=== PATIENT | female | born 1995 | race African-American/Black ===

== ENCOUNTER 2019-11-12 20:24 | Emergency (ER) | payer MEDICAID ==
[~2019-11-12] VITALS: Ht 160 cm; Wt 45.4 kg
--- NOTE | 2019-11-12 21:31 | PHYS DOC ---
Adult General Chief Complaint Chief Complaint: FLU SYMPTOM HPI HPI Patient is a 24 year old female who presents with headache, dizziness, stomach ache, nausea, fever this been ongoing for 3-4 days. Patient rates her pain as 5 out of 10 in severity and sharp. Patient has type 1 diabetes. Patient does not check her blood sugar recently. Review of Systems Review of Systems Constitutional: Reports fever or chills [] Eyes: Denies change in visual acuity, redness, or eye pain [] HENT: Denies nasal congestion or sore throat [] Respiratory: Denies cough or shortness of breath [] Cardiovascular: No additional information not addressed in HPI [] GI: Reports abdominal pain, nausea, Denies vomiting, bloody stools or diarrhea [] : Denies dysuria or hematuria [] Musculoskeletal: Denies back pain or joint pain Integument: Denies rash or skin lesions Neurologic: Reports dizziness, headache, denies focal weakness or sensory changes [] Endocrine: Denies polyuria or polydipsia [] Complete systems were reviewed and found to be within normal limits, except as documented in this note. Current Medications Current Medications Current Medications Medications (Trade) Dose Ordered Sig/Stephanie Start Time Stop Time Status Last Admin Dose Admin Fentanyl Citrate (Fentanyl 2ml Vial) 50 mcg 1X ONCE 11/12/19 22:30 11/12/19 22:31 DC Info (CONTRAST GIVEN -- Rx MONITORING) 1 each PRN DAILY PRN 11/12/19 21:45 11/14/19 21:44 Iohexol (Omnipaque 300 Mg/ml) 75 ml 1X ONCE 11/12/19 22:00 11/12/19 22:01 DC 11/12/19 22:29 75 ML Ondansetron HCl (Zofran) 4 mg 1X ONCE 11/12/19 22:00 11/12/19 22:01 DC 11/12/19 21:47 4 MG Sodium Chloride 1,000 ml @ 1,000 mls/hr 1X ONCE 11/12/19 22:00 11/12/19 22:59 DC 11/12/19 21:47 1,000 MLS/HR Allergies Allergies Allergies Coded Allergies Type Severity Reaction Last Updated Verified hydrocodone Allergy Intermediate 11/12/19 Yes prochlorperazine Allergy Intermediate 11/12/19 Yes Physical Exam Physical Exam Constitutional: Well developed, well nourished, no acute distress, non-toxic appearance. [] HENT: Normocephalic, atraumatic, bilateral external ears normal, oropharynx moist, no oral exudates, nose normal. [] Eyes: PERRLA, EOMI, conjunctiva normal, no discharge. [] Neck: Normal range of motion, no tenderness, supple, no stridor. [] Cardiovascular:Heart rate regular rhythm, no murmur [] Lungs & Thorax: Bilateral breath sounds clear to auscultation [] Abdomen: Bowel sounds normal, soft, no tenderness, no masses, no pulsatile masses. [] Skin: Warm, dry, no erythema, no rash. [] Back: No tenderness, no CVA tenderness. [] Extremities: No tenderness, no cyanosis, no clubbing, ROM intact, no edema. [] Neurologic: Alert and oriented X 3, normal motor function, normal sensory function, no focal deficits noted. [] Psychologic: Affect normal, judgement normal, mood normal. [] Current Patient Data Vital Signs Vital Signs Date Time Temp Pulse Resp B/P (MAP) Pulse Ox O2 Delivery O2 Flow Rate FiO2 11/12/19 20:35 98.2 93 20 138/93 (108) 98 Room Air 98.2 Lab Values Laboratory Tests Test 11/12/19 20:41 11/12/19 20:45 11/12/19 20:51 11/12/19 21:44 Glucose (Fingerstick) 333 mg/dL (70-99) H White Blood Count 6.2 x10^3/uL (4.0-11.0) Red Blood Count 3.99 x10^6/uL (3.50-5.40) Hemoglobin 10.3 g/dL (12.0-15.5) L Hematocrit 32.3 % (36.0-47.0) L Mean Corpuscular Volume 81 fL (79-100) Mean Corpuscular Hemoglobin 26 pg (25-35) Mean Corpuscular Hemoglobin Concent 32 g/dL (31-37) Red Cell Distribution Width 15.0 % (11.5-14.5) H Platelet Count 347 x10^3/uL (140-400) Neutrophils (%) (Auto) 57 % (31-73) Lymphocytes (%) (Auto) 35 % (24-48) Monocytes (%) (Auto) 6 % (0-9) Eosinophils (%) (Auto) 1 % (0-3) Basophils (%) (Auto) 1 % (0-3) Neutrophils # (Auto) 3.5 x10^3/uL (1.8-7.7) Lymphocytes # (Auto) 2.2 x10^3/uL (1.0-4.8) Monocytes # (Auto) 0.4 x10^3/uL (0.0-1.1) Eosinophils # (Auto) 0.1 x10^3/uL (0.0-0.7) Basophils # (Auto) 0.0 x10^3/uL (0.0-0.2) Urine Collection Type Unknown Urine Color Yellow Urine Clarity Cloudy Urine pH 6.5 Urine Specific [place] 1.020 Urine Protein >=300 mg/dL (NEG-TRACE) Urine Glucose (UA) >=1000 mg/dL (NEG) Urine Ketones (Stick) Negative mg/dL (NEG) Urine Blood Moderate (NEG) Urine Nitrite Negative (NEG) Urine Bilirubin Negative (NEG) Urine Urobilinogen Dipstick 0.2 mg/dL (0.2 mg/dL) Urine Leukocyte Esterase Large (NEG) Urine RBC 6-10 /HPF (0-2) Urine WBC Tntc /HPF (0-4) Urine Squamous Epithelial Cells Few /LPF Urine Bacteria Moderate /HPF (0-FEW) Urine Mucus Slight /LPF Sodium Level 134 mmol/L (136-145) L Potassium Level 4.2 mmol/L (3.5-5.1) Chloride Level 98 mmol/L (98-107) Carbon Dioxide Level 28 mmol/L (21-32) Anion Gap 8 (6-14) Blood Urea Nitrogen 15 mg/dL (7-20) Creatinine 1.0 mg/dL (0.6-1.0) Estimated GFR (Cockcroft-Gault) 81.7 BUN/Creatinine Ratio 15 (6-20) Glucose Level 343 mg/dL (70-99) H Calcium Level 9.2 mg/dL (8.5-10.1) Magnesium Level 1.9 mg/dL (1.8-2.4) Total Bilirubin 0.2 mg/dL (0.2-1.0) Aspartate Amino Transferase (AST) 14 U/L (15-37) L Alanine Aminotransferase (ALT) 6 U/L (14-59) L Alkaline Phosphatase 68 U/L (46-116) Total Protein 7.8 g/dL (6.4-8.2) Albumin 2.6 g/dL (3.4-5.0) L Albumin/Globulin Ratio 0.5 (1.0-1.7) L Lipase 36 U/L (73-393) L Urine Opiates Screen Neg (NEG) Urine Methadone Screen Neg (NEG) Urine Barbiturates Neg (NEG) Urine Phencyclidine Screen Neg (NEG) Urine Amphetamine/Methamphetamine Neg (NEG) Urine Benzodiazepines Screen Neg (NEG) Urine Cocaine Screen Neg (NEG) Urine Cannabinoids Screen Pos (NEG) Ethyl Alcohol Level < 10 mg/dL (0-10) Urine Ethyl Alcohol Neg (NEG) Acetone Level Neg (NEG) POC Urine HCG, Qualitative Hcg negative (Negative) Influenza Type A Antigen Negative (NEGATIVE) Influenza Type B Antigen Negative (NEGATIVE) Laboratory Tests 11/12/19 20:45 Laboratory Tests 11/12/19 20:45 EKG EKG [] Radiology/Procedures Radiology/Procedures [][facility] [address] [place] [address] IMAGING REPORT Signed PATIENT: PRASAD JACOBSON MACCOUNT: [id number] : 1995 LOCATION: ER AGE: 24 SEX: F EXAM STATUS: REG ER ORD. PHYSICIAN: EZRA CHAPA APRN REASON: RLQ abdominal pain, nausea PROCEDURE: CT ABD PELV W/ IV CONTRST ONLY Exam: CT abdomen and pelvis with contrast INDICATION: Right lower quadrant pain TECHNIQUE: Sequential axial images through the abdomen and pelvis obtained following the administration of 75 mL of Omni 300 IV contrast. Sagittal and coronal reformatted images were reconstructed from the axial data and reviewed. Comparisons: None FINDINGS: Heart size is normal. No pericardial effusion. Visualized lung bases are clear. No pleural effusion. Liver, spleen, pancreas, gallbladder and adrenals are unremarkable. Kidneys demonstrate symmetric enhancement. No perinephric inflammation or hydronephrosis. No renal or ureteral calculi are identified. There is a right-sided ureteral wall enhancement. Bladder is distended with diffuse wall thickening. Uterus is not enlarged. No abnormal adnexal mass. There is trace free fluid in the pelvis. Large and small bowel are unremarkable. Appendix is normal. No free intra-abdominal air or fluid. No obstruction. Abdominal aorta has a normal course and caliber. Abdominal vasculature is patent. Enlarged intra-abdominal lymph nodes are identified. No suspicious osseous lesions or acute fractures. IMPRESSION: 1. Right-sided ureteral enhancement. There is also diffuse bladder wall thickening. Correlate with urinalysis for cystitis/ureteritis 2. Normal appendix. Exposure: One or more of the following in the visualized dose reduction techniques were utilized for this examination: 1. Automated exposure control 2. Adjustment of the MA and/or KV according to patient size 3. Use of iterative of reconstructive technique Electronically signed by: Talia Jones MD (11/12/2019 11:28 PM) [facility] DICTATED and SIGNED BY: TALIA JONES MD DATE: 11/12/19 1088 Course & Med Decision Making Course & Med Decision Making Pertinent Labs and Imaging studies reviewed. (See chart for details) Will get labs, CT, chest x-ray, and influenza. Will give supportive care. Labs show hyperglycemia of 333. Labs were otherwise unremarkable. Urine shows leukocytes and blood. Will place on Keflex. Chest x-ray shows right lower lobe infiltrate. Will place on Doxycycline. Will also prescribe Zofran. Dragon Disclaimer Dragon Disclaimer This electronic medical record was generated, in whole or in part, using a voice recognition dictation system. Departure Departure Impression: Primary Impression: Hyperglycemia Additional Impressions: Urinary tract infection Pneumonia Disposition: 01 HOME, SELF-CARE Condition: STABLE Referrals: SHAKIRA ANGEL DO (PCP) Patient Instructions: Hyperglycemia, Pneumonia, Adult, Urinary Tract Infection Additional Instructions: Thank you for visiting [facility]. We appreciate you trusting us with your care. If any additional problems come up don't hesitate to return to visit us. Please follow up with your primary care provider so they can plan additional care if needed and know about the problem that you had. If symptoms worsen come back to the Emergency Department. Any concerning symptoms that start such as chest pain, shortness of air, weakness or numbness on one side of the body, running high fevers or any other concerning symptoms return to the ER. Please be aware that diabetes can cause your sugars to fluctuate while you are sick. This can cause additional issues. Please check your sugars often to ensure they are staying in a safe range and if you are on insulin please take as instructed by your primary care doctor. If you have any questions about this please let us know or contact your primary care provider for additional instruction about taking your insulin while you are sick. If you get concerned regarding your sugar while at home please do not hesitate to come back to the ER. You have been prescribed an antibiotic today to help fight your infection. Please take all of the antibiotic as directed. If after 48 hours the infection is not improving, please return for more care. If the infection worsens, return to ER for additional care. Scripts Doxycycline Hyclate (DOXYCYCLINE HYCLATE) 100 Mg Capsule 1 CAP PO BID for 10 Days, #20 CAP Prov: EZRA CHAPA APRN 11/12/19 Ondansetron (ONDANSETRON ODT) 4 Mg Tab.rapdis 1 TAB PO PRN Q6-8HRS PRN for NAUSEA, #16 TAB Prov: EZRA CHAPA APRN 11/12/19 Cephalexin (KEFLEX) 500 Mg Capsule 1 CAP PO BID for 7 Days, #14 CAP 0 Refills Prov: EZRA CHAPA APRN 11/12/19 Problem Qualifiers Additional Impressions: Urinary tract infection Urinary tract infection type: acute cystitis Hematuria presence: with hematuria Qualified Codes: N30.01 - Acute cystitis with hematuria Pneumonia Pneumonia type: due to unspecified organism Laterality: right Lung location: lower lobe of lung Qualified Codes: J18.9 - Pneumonia, unspecified organism EZRA CHAPA APRN Nov 12, 2019 21:31
[2019-11-12 21:34] LABS: BASO % 1 % (0-3); EOS # 0.1 x10^3/uL (0.0-0.7); EOS % 1 % (0-3); HEMATOCRIT 32.3 % (36.0-47.0); HEMOGLOBIN 10.3 g/dL (12.0-15.5); LYMPH # 2.2 x10^3/uL (1.0-4.8); LYMPH % 35 % (24-48); MEAN CORPUSCULAR HEMOGLOBIN 26 pg (25-35); MEAN CORPUSCULAR HGB CONC 32 g/dL (31-37); MEAN CORPUSCULAR VOLUME 81 fL (79-100); MONO # 0.4 x10^3/uL (0.0-1.1); MONO % 6 % (0-9); NEUT # 3.5 x10^3/uL (1.8-7.7); NEUT % 57 % (31-73); PLATELET COUNT 347 x10^3/uL (140-400); RED BLOOD COUNT 3.99 x10^6/uL (3.50-5.40); WHITE BLOOD COUNT 6.2 x10^3/uL (4.0-11.0)
[2019-11-12 21:45] LABS: BILIRUBIN,URINE NEGATIVE (NEG); CLARITY,URINE CLOUDY; COLOR,URINE YELLOW; NITRITE,URINE NEGATIVE (NEG); PH,URINE 6.5; PROTEIN,URINE >=300 mg/dL (NEG-TRACE); UROBILINOGEN,URINE 0.2 mg/dL (0.2 mg/dL)
[2019-11-12] MEDS ORDERED: CONTRAST GIVEN. MC PRN (21:45)
[2019-11-12 21:48] LABS: SQUAMOUS EPITHELIAL CELL,UR FEW /LPF
[2019-11-12 21:49] LABS: BACTERIA,URINE MODERATE /HPF (0-FEW); WBC,URINE TNTC /HPF (0-4)
[2019-11-12 21:52] LABS: CALCIUM 9.2 mg/dL (8.5-10.1); GFR 81.7; POTASSIUM 4.2 mmol/L (3.5-5.1)
[2019-11-12 21:53] LABS: BARBITURATES NEG (NEG); BENZODIAZEPINES NEG (NEG); CANNABINOIDS POS (NEG); COCAINE NEG (NEG); METHADONE NEG (NEG); OPIATES NEG (NEG); PHENCYCLIDINE NEG (NEG)
[2019-11-12 21:57] LABS: ALBUMIN 2.6 g/dL (3.4-5.0); ALBUMIN/GLOBULIN RATIO 0.5 (1.0-1.7); AMPHETAMINE/METHAMPHETAMINE NEG (NEG); MAGNESIUM 1.9 mg/dL (1.8-2.4); TOTAL BILIRUBIN 0.2 mg/dL (0.2-1.0); TOTAL PROTEIN 7.8 g/dL (6.4-8.2)
[2019-11-12] MEDS ORDERED: ONDANSETRON PF 4 MG/2 ML VIAL. IV ONE (22:00)
[2019-11-12] MEDS ORDERED: IV NORMAL SALINE 1000ML BAG 1,000 ML IV ONE (22:00)
[2019-11-12] MEDS ORDERED: IOHEXOL 300 MG/ML 100ML VIAL. IV ONE (22:00)
[2019-11-12 22:14] LABS: INFLUENZA A PATIENT NEGATIVE (NEGATIVE); INFLUENZA B PATIENT NEGATIVE (NEGATIVE)
[2019-11-12 22:18] VITALS: BP 196/118
[2019-11-12] MEDS ORDERED: fentaNYL PF VIAL 100 MCG/2 ML VIAL IV ONE (22:30)
--- NOTE | 2019-11-12 23:31 | RAD ---
Exam: CT abdomen and pelvis with contrast INDICATION: Right lower quadrant pain TECHNIQUE: Sequential axial images through the abdomen and pelvis obtained following the administration of 75 mL of Omni 300 IV contrast. Sagittal and coronal reformatted images were reconstructed from the axial data and reviewed. Comparisons: None FINDINGS: Heart size is normal. No pericardial effusion. Visualized lung bases are clear. No pleural effusion. Liver, spleen, pancreas, gallbladder and adrenals are unremarkable. Kidneys demonstrate symmetric enhancement. No perinephric inflammation or hydronephrosis. No renal or ureteral calculi are identified. There is a right-sided ureteral wall enhancement. Bladder is distended with diffuse wall thickening. Uterus is not enlarged. No abnormal adnexal mass. There is trace free fluid in the pelvis. Large and small bowel are unremarkable. Appendix is normal. No free intra-abdominal air or fluid. No obstruction. Abdominal aorta has a normal course and caliber. Abdominal vasculature is patent. Enlarged intra-abdominal lymph nodes are identified. No suspicious osseous lesions or acute fractures. IMPRESSION: 1. Right-sided ureteral enhancement. There is also diffuse bladder wall thickening. Correlate with urinalysis for cystitis/ureteritis 2. Normal appendix. Exposure: One or more of the following in the visualized dose reduction techniques were utilized for this examination: 1. Automated exposure control 2. Adjustment of the MA and/or KV according to patient size 3. Use of iterative of reconstructive technique Electronically signed by: Talia Mcclain MD (11/12/2019 11:28 PM) [facility]
[2019-11-12] MEDS ORDERED: ONDA4TAB12 PO (23:33)
[2019-11-12] MEDS ORDERED: DOXY100C2 PO (23:33)
[2019-11-12] MEDS ORDERED: CEPH-264 PO (23:33)
--- NOTE | 2019-11-13 03:34 | RAD ---
Exam: Chest 2 views INDICATION: Shortness of breath TECHNIQUE: Frontal and lateral views the chest Comparisons: None FINDINGS: The cardiomediastinal silhouette and pulmonary vessels are within normal limits. The lung and pleural spaces are clear. IMPRESSION: No acute cardiopulmonary process. Electronically signed by: Talia Mcclain MD (11/13/2019 3:31 AM) [facility]
--- NOTE | 2019-11-13 08:24 | EKG ---
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
== END 2019-11-12 23:50 | disposition home or self-care (01) ==
LOC: ER 20:24
DX: E10.65 Type 1 diabetes mellitus with hyperglycemia (principal); N30.01 Acute cystitis with hematuria; J18.9 Pneumonia, unspecified organism; R42 Dizziness and giddiness; Z88.5 Allergy status to narcotic agent; Z88.8 Allergy status to other drugs, medicaments and biological substances
CPT/HCPCS: 36415; 71046; 74177; 80053; 80307; 81001; 81025; 82010; 82962; 83690; 83735; 85025; 87086; 87804; 93005; 96361; 96374; 99285; G0480; J2405; J7030; Q9967

== ENCOUNTER 2022-02-23 15:15 | Inpatient (IN) | payer MEDICAID ==
[~2022-02-23] VITALS: Ht 157.5 cm; Wt 54.0 kg
[~2022-02-23 15:15] MED LIST: CEPH-264 PO; DOXY100C3 PO; ONDA4TAB12 PO
[2022-02-23] MEDS ORDERED: ONDANSETRON PF 4 MG/2 ML VIAL. IVP ONE (15:45)
[2022-02-23] MEDS ORDERED: ONDANSETRON ODT 4 MG TAB.RAPDIS. PO ONE (15:45)
[2022-02-23 16:30] LABS: BASO # 0.1 x10^3/uL (0.0-0.2); BASO % 1 % (0-3); EOS # 0.1 x10^3/uL (0.0-0.7); EOS % 1 % (0-3); HEMATOCRIT 37.4 % (36.0-47.0); HEMOGLOBIN 11.6 g/dL (12.0-15.5); LYMPH # 1.1 x10^3/uL (1.0-4.8); LYMPH % 11 % (24-48); MEAN CORPUSCULAR HEMOGLOBIN 27 pg (25-35); MEAN CORPUSCULAR HGB CONC 31 g/dL (31-37); MEAN CORPUSCULAR VOLUME 88 fL (79-100); MONO # 0.3 x10^3/uL (0.0-1.1); MONO % 3 % (0-9); NEUT # 8.7 x10^3/uL (1.8-7.7); NEUT % 86 % (31-73); PLATELET COUNT 160 x10^3/uL (140-400); RED BLOOD COUNT 4.23 x10^6/uL (3.50-5.40); RED CELL DISTRIBUTION WIDTH 15.4 % (11.5-14.5); WHITE BLOOD COUNT 10.1 x10^3/uL (4.0-11.0)
[2022-02-23] MEDS ORDERED: METOCLOPRAMIDE HCL 10 MG/2 ML VIAL. IVP ONE (16:30)
--- NOTE | 2022-02-23 17:42 | PHYS DOC ---
Past Medical History Past Medical History: Diabetes-Type I, Hypertension, Kidney Infection, Renal Failure Additional Past Medical Histor: DIALYSIS MWF Past Surgical History: No Surgical History Smoking Status: Never Smoker Alcohol Use: None Drug Use: None General Adult EDM: Chief Complaint: NAUSEA/VOMITING/DIARRHEA HPI: HPI: Patient is a 26 year old female with past medical history including hypertension, diabetes type 1 with gastroparesis, and end-stage renal disease on dialysis who presents with nausea, diarrhea. On arrival, patient is gagging herself in order to induce vomiting. She does not answer many questions, but states she is doing this to make her "stomach feel better." Patient states she typically goes to [facility] for care. Patient denies fever, chills, hematemesis, bloody stool. She was dialyzed yesterday, but is unsure how much fluid was removed. Review of Systems: Review of Systems: Constitutional: See HPI Eyes: Denies change in visual acuity, visual field deficits or discharge HENT: Denies ear pain, nasal congestion or sore throat Respiratory: Denies cough or shortness of breath Cardiovascular: Denies chest pain, palpitations or edema GI: See HPI : Denies dysuria or hematuria Musculoskeletal: Denies back pain or joint pain Integument: Denies rash or other skin lesion Neurologic: Denies headache, focal weakness or sensory changes Heart Score: C/O Chest Pain: No Current Medications: Current Medications Medications (Trade) Dose Ordered Sig/Stephanie Start Time Stop Time Status Last Admin Dose Admin Metoclopramide HCl (Reglan Vial) 5 mg 1X ONCE 02/23/22 16:30 02/23/22 16:31 DC Ondansetron HCl (Zofran Odt) 4 mg 1X ONCE 02/23/22 15:45 02/23/22 16:26 DC Ondansetron HCl (Zofran) 4 mg 1X ONCE 02/23/22 15:45 02/23/22 15:46 DC 02/23/22 16:11 4 MG Allergies: Allergies: Allergies Coded Allergies Type Severity Reaction Last Updated Verified fentanyl Allergy Intermediate 02/23/22 Yes hydrocodone Allergy Intermediate 11/12/19 Yes prochlorperazine Allergy Intermediate 11/12/19 Yes Physical Exam: PE: Constitutional: Well developed, well nourished, patient is tearful, appears significantly older than stated age. HENT: Normocephalic, atraumatic, bilateral external ears normal, nose normal. Eyes: EOMI, conjunctiva normal, no discharge. Neck: Normal range of motion, no stridor. Cardiovascular: Heart regular rate and rhythm. No apparent rubs or gallops. Lungs & Thorax: Equal thoracic expansion, no increased work of breathing, bi lateral breath sounds clear to auscultation. Back: No tenderness, no CVA tenderness. Extremities: No cyanosis, no clubbing, ROM intact, no edema. Neurologic: Alert and oriented x4, motor and sensory function grossly intact, no focal deficits noted. Current Patient Data: Labs: Laboratory Tests Test 02/23/22 15:30 02/23/22 15:39 White Blood Count 10.1 x10^3/uL (4.0-11.0) Red Blood Count 4.23 x10^6/uL (3.50-5.40) Hemoglobin 11.6 g/dL (12.0-15.5) L Hematocrit 37.4 % (36.0-47.0) Mean Corpuscular Volume 88 fL (79-100) Mean Corpuscular Hemoglobin 27 pg (25-35) Mean Corpuscular Hemoglobin Concent 31 g/dL (31-37) Red Cell Distribution Width 15.4 % (11.5-14.5) H Platelet Count 160 x10^3/uL (140-400) Neutrophils (%) (Auto) 86 % (31-73) H Lymphocytes (%) (Auto) 11 % (24-48) L Monocytes (%) (Auto) 3 % (0-9) Eosinophils (%) (Auto) 1 % (0-3) Basophils (%) (Auto) 1 % (0-3) Neutrophils # (Auto) 8.7 x10^3/uL (1.8-7.7) H Lymphocytes # (Auto) 1.1 x10^3/uL (1.0-4.8) Monocytes # (Auto) 0.3 x10^3/uL (0.0-1.1) Eosinophils # (Auto) 0.1 x10^3/uL (0.0-0.7) Basophils # (Auto) 0.1 x10^3/uL (0.0-0.2) Glucose (Fingerstick) 245 mg/dL (70-99) H Laboratory Tests 02/23/22 15:30 Vital Signs: Vital Signs Date Time Temp Pulse Resp B/P (MAP) Pulse Ox O2 Delivery O2 Flow Rate FiO2 02/23/22 19:48 94 209/96 02/23/22 19:20 92 18 227/121 (156) 96 Room Air 02/23/22 17:57 91 20 228/109 (148) 91 Room Air 02/23/22 17:00 88 18 221/109 (146) 96 Room Air 02/23/22 15:15 97.4 87 18 244/112 (156) 99 Room Air 97.4 EKG: EKG: EKG Interpreted by Dr. Andrade at 1939: Regular rate and rhythm 93 bpm with no ectopic beats. QT 396 ms/QTc 495 ms. No STEMI. Course & Med Decision Making: Course & Med Decision Making Pertinent Labs and Imaging studies reviewed. (See chart for details) Patient is a 26-year-old female with past medical history that includes ESRD and diabetic gastroparesis who presents with nausea and vomiting. Patient is using her index finger to force herself to vomit and has to be redirected several times in order for her to stop. Labs will be obtained, patient will be treated with IV Zofran. Reevaluation, patient states that her nausea is not improved. Provided renal dosing of Reglan IV (5mg). Patient continues to be tearful and attempts to gag herself to vomit. Administered 2.5 IV Haldol. On subsequent reevaluation, patient is resting on exam bed. She reports that her nausea is still very severe. Patient wishes to be admitted at [facility]. Transfer center was contacted, however hospital is completely full and has no available beds. Discussed admission to [facility] with the patient and her brother at bedside. They are agreeable. Patient was gladly accepted by hospitalist, Dr. Amezquita. Consult will be added for nephrology, as patient is due to be dialyzed tomorrow. Casey Disclaimer: Casey Disclaimer: This electronic medical record was generated, in whole or in part, using a voice recognition dictation system. Departure Departure Impression: Primary Impression: Intractable nausea and vomiting Additional Impressions: History of end stage renal disease Hx of diabetic gastroparesis Disposition: ADMITTED INPATIENT Admitting Physician: SHILA Gilmore) Condition: GUARDED Referrals: SHAKIRA ANGEL DO (PCP) HANNAH LUNA Feb 23, 2022 17:42
[2022-02-23] MEDS ORDERED: HALOPERIDOL LACTATE 5 MG/ML VIAL. IVP ONE (18:15)
[2022-02-23] MEDS ORDERED: hydrALAZINE 20 MG/ML VIAL. IVP ONE (19:30)
[2022-02-23 20:03] LABS: CALCIUM 8.7 mg/dL (8.5-10.1); CREATININE 4.9 mg/dL (0.6-1.0); GFR 12.9; POTASSIUM 3.4 mmol/L (3.5-5.1)
[2022-02-23 20:09] LABS: ALBUMIN 4.1 g/dL (3.4-5.0); ALBUMIN/GLOBULIN RATIO 0.9 (1.0-1.7); MAGNESIUM 2.1 mg/dL (1.8-2.4); PHOSPHORUS 3.8 mg/dL (2.6-4.7); TOTAL BILIRUBIN 0.7 mg/dL (0.2-1.0); TOTAL PROTEIN 8.5 g/dL (6.4-8.2)
[2022-02-23] MEDS ORDERED: ONDANSETRON PF 4 MG/2 ML VIAL. IVP PRN (20:45)
[2022-02-23 23:05] VITALS: BP 157/81
--- NOTE | 2022-02-23 23:39 | NUR ---
The patient, PRASAD JACOBSON, 26 y/o, F admitted by VALENCIA AARON MD, was given written information regarding hospital policies, unit procedures and contact persons. Assessment completed vss pt drowsy unable to keep eyes open , pt history obtained from pt brother at bedside and mother Elisa via telephone. Pt mother stated that pt usually is a pt at [facility]. Pt respond to name when asked if she was having pain she pointed to her abdomen. Poc explained to pt family call light placed in reach and bed alarm was set. Valuables were checked and insulin pump was sent home with pt brother.
[2022-02-24] MEDS ORDERED: IV DEXTROSE 5% 250 ML BAG. IV PRN ×2 (00:30→04:15)
[2022-02-24] MEDS ORDERED: DEXTROSE 50% 25 GM / 50ML DISP.SYRIN. IV PRN ×2 (00:30→04:15)
--- NOTE | 2022-02-24 02:12 | EKG ---
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
[2022-02-24 03:05] VITALS: BP 116/49
[2022-02-24] MEDS: INSULIN LISPRO 300 UNITS/3 ML VIAL. SQ SCH ×5 (04:21→21:08)
--- NOTE | 2022-02-24 04:22 | NUR ---
Pt had a 3am BG of 412. Contacted DR. Brink to see if she wanted to add addition isulin on top of SSI. Dr. Brink stated to change to a High Intensity SS. did not give 1 time order, administered max amount for sliding scale to give coverage. Will continue to monitor
[2022-02-24] MEDS ORDERED: HYDR-2869 PO (06:33)
[2022-02-24] MEDS ORDERED: ATOR10TA60 PO (06:34)
[2022-02-24] MEDS ORDERED: ISOS60TA55 PO (06:34)
[2022-02-24] MEDS ORDERED: CARV25TA2 PO (06:34)
[2022-02-24] MEDS ORDERED: TORS5TAB3 PO (06:34)
[2022-02-24] MEDS ORDERED: INSU100C4 SQ (06:34)
[2022-02-24] MEDS ORDERED: CITA30CA PO (06:34)
[2022-02-24] MEDS ORDERED: [UNRECOGNIZED DRUG - OTHER] (06:34)
[2022-02-24 07:00] VITALS: BP 107/51
[2022-02-24] MEDS ORDERED: INSULIN LISPRO 300 UNITS/3 ML VIAL. SQ SCH (08:00)
[2022-02-24] MEDS ORDERED: CITA20TA9 PO (08:42)
[2022-02-24] MEDS ORDERED: TORS20TA2 PO (08:42)
[2022-02-24] MEDS ORDERED: CALC667T4 PO (08:42)
[2022-02-24] MEDS ORDERED: GABA600T7 PO (08:43)
--- NOTE | 2022-02-24 08:59 | PDOC1 ---
History and Physical Date of Admission Date of Admission DATE: 02/24/22 TIME: 08:58 Source Source: Chart review, Patient History of Present Illness History of Present Illness Patient is a 26 year old female with past medical history including hypertension, diabetes type 1 with gastroparesis, and end-stage renal disease on dialysis who presents with nausea, diarrhea. On arrival, she was trying to induce vomiting due to pain. ut states she is doing this to make her "stomach feel better." Patient states she typically goes to [facility] for care. Patient denies fever, chills, hematemesis, bloody stool. She was dialyzed yesterday, but is unsure how much fluid was removed. Past Medical History Cardiovascular: HTN Renal/: Chronic renal failure (ESRD) Endocrine: Diabetes Past Surgical History Past Surgical History: No pertinent history Family History Family History: No Significant Social History ALCOHOL: none Drugs: None Current Problem List Problem List Problems Medical Problems: (1) History of end stage renal disease Status: Acute (2) Hx of diabetic gastroparesis Status: Acute (3) Intractable nausea and vomiting Status: Acute Current Medications Current Medications Current Medications Ondansetron HCl (Zofran Odt) 4 mg 1X ONCE PO ; Start 02/23/22 at 15:45; Stop 02/23/22 at 16:26; Status DC Ondansetron HCl (Zofran) 4 mg 1X ONCE IVP Last administered on 02/23/22at 16:11; Start 02/23/22 at 15:45; Stop 02/23/22 at 15:46; Status DC Metoclopramide HCl (Reglan Vial) 5 mg 1X ONCE IVP Last administered on 02/23/22at 17:53; Start 02/23/22 at 16:30; Stop 02/23/22 at 16:31; Status DC Lorazepam (Ativan Inj) 1 mg 1X ONCE IVP ; Start 02/23/22 at 18:15; Stop 02/23/22 at 18:09; Status DC Haloperidol Lactate (Haldol Inj) 2.5 mg 1X ONCE IVP Last administered on 02/23/22at 19:18; Start 02/23/22 at 18:15; Stop 02/23/22 at 18:16; Status DC Hydralazine HCl (Apresoline Inj) 10 mg 1X ONCE IVP Last administered on 02/23/22at 19:48; Start 02/23/22 at 19:30; Stop 02/23/22 at 19:31; Status DC Ondansetron HCl (Zofran) 4 mg PRN Q8HRS PRN IVP NAUSEA/VOMITING; Start 02/23/22 at 20:45; Stop 02/24/22 at 20:44 Insulin Human Lispro (HumaLOG) 0-7 UNITS TIDWMEALS SQ ; Start 02/24/22 at 08:00; Stop 02/24/22 at 04:07; Status DC Dextrose (Dextrose 50%-Water Syringe) 12.5 gm PRN Q15MIN PRN IV SEE COMMENTS; Start 02/24/22 at 00:30; Stop 02/24/22 at 04:07; Status DC Dextrose (Iv Dextrose 5%) 250 ml PRN Q15MIN PRN IV SEE COMMENTS; Start 02/24/22 at 00:30; Stop 02/24/22 at 04:07; Status DC Insulin Human Lispro (HumaLOG) 0-9 UNITS Q4H SQ Last administered on 02/24/22at 08:55; Start 02/24/22 at 04:00 Dextrose (Dextrose 50%-Water Syringe) 12.5 gm PRN Q15MIN PRN IV SEE COMMENTS; Start 02/24/22 at 04:15 Dextrose (Iv Dextrose 5%) 250 ml PRN Q15MIN PRN IV SEE COMMENTS; Start 02/24/22 at 04:15 Active Scripts Active Reported Gabapentin 600 Mg Tablet 100 Mg PO TID Calcium Acetate 667 Mg Tablet 1 Tab PO BID 30 Days Torsemide 20 Mg Tablet 1 Tab PO TID Celexa (Citalopram Hydrobromide) 20 Mg Tablet 1 Tab PO DAILY [dexcom] Novolog (Insulin Aspart) 100 Unit/1 Ml Cartridge 0.5 Unit SQ Q1HR Isosorbide Mononitrate Er (Isosorbide Mononitrate) 60 Mg Tab.er.24h 1 Tab PO DAILY Carvedilol 25 Mg Tablet Unknown Dose PO BIDWMEALS Hydralazine Hcl 50 Mg Tablet 1 Tab PO TID Allergies Allergies: Coded Allergies: fentanyl (Verified Allergy, Intermediate, 02/23/22) hydrocodone (Verified Allergy, Intermediate, 11/12/19) prochlorperazine (Verified Allergy, Intermediate, 11/12/19) ROS General: YES: Chills, Fatigue, Malaise PSYCHOLOGICAL ROS: YES: Irritablity, Sleep disturbances Eyes: No Blurry vision, No Decreased vision, No Double vision, No Dry eyes, No Excessive tearing, No Eye Pain, No Itchy Eyes, No Loss of vision, No Photophobia, No Scotomata, No Uses contacts, No Uses glasses, No Other HEENT: YES: Heacaches; No: Visual Changes, Hearing change, Nasal congestion, Nasal discharge, Oral lesions, Sinus pain, Sore Throat, Epistaxis, Sneezing, Snoring, Tinnitus, Vertigo, Vocal changes, Other Respiratory: No: Cough, Hemoptysis, Orthopnea, Pleuritic Pain, Shortness of breath, SOB with excertion, Sputum Changes, Stridor, Tachypnea, Wheezing, Other Cardiovascular: No Chest Pain, No Palpitations, No Orthopnea, No Paroxysmal Noc. Dyspnea, No Edema, No Lt Headedness, No Other Gastrointestinal: Yes Nausea, Yes Vomiting, Yes Abdominal Pain Genitourinary: No Dysuria, No Frequency, No Incontinence, No Hematuria, No Retention, No Discharge, No Urgency, No Pain, No Flank Pain, No Other, No , No , No , No , No , No , No Musculoskeletal: Yes Joint Stiffness Neurological: No Behavorial Changes, No Bowel/Bladder ControlChng, No Confusion, No Dizziness, No Gait Disturbance, No Headaches, No Impaired Coord/balance, No Memory Loss, No Numbness/Tingling, No Seizures, No Speech Problems, No Tremors, No Visual Changes, No Weakness, No Other Skin: No Dry Skin, No Eczema, No Hair Changes, No Lumps, No Mole Changes, No Mottling, No Nail Changes, No Pruritus, No Rash, No Skin Lesion Changes, No Other, No Acne Physical Exam General: Cooperative, mild distress HEENT: PERRLA, Mucous membr. moist/pink Lungs: Clear to auscultation Heart: S1S2, no murmurs Breasts: Lt breast nml w/o mass Abdomen: Other (tender, active sounds) Extremities: No clubbing, No edema Skin: No rashes, No significant lesion Neuro: Normal speech, Sensation intact, Cranial nerves 3-12 NL Psych/Mental Status: Mental status NL, Mood NL Vitals Vitals Vital Signs Date Time Temp Pulse Resp B/P (MAP) Pulse Ox O2 Delivery O2 Flow Rate FiO2 02/24/22 03:05 98.4 103 18 116/49 (71) 98 Room Air 98.4 Labs Labs Laboratory Tests Test 02/23/22 15:30 02/23/22 15:39 02/23/22 19:33 02/23/22 23:22 White Blood Count 10.1 x10^3/uL (4.0-11.0) Red Blood Count 4.23 x10^6/uL (3.50-5.40) Hemoglobin 11.6 g/dL (12.0-15.5) Hematocrit 37.4 % (36.0-47.0) Mean Corpuscular Volume 88 fL (79-100) Mean Corpuscular Hemoglobin 27 pg (25-35) Mean Corpuscular Hemoglobin Concent 31 g/dL (31-37) Red Cell Distribution Width 15.4 % (11.5-14.5) Platelet Count 160 x10^3/uL (140-400) Neutrophils (%) (Auto) 86 % (31-73) Lymphocytes (%) (Auto) 11 % (24-48) Monocytes (%) (Auto) 3 % (0-9) Eosinophils (%) (Auto) 1 % (0-3) Basophils (%) (Auto) 1 % (0-3) Neutrophils # (Auto) 8.7 x10^3/uL (1.8-7.7) Lymphocytes # (Auto) 1.1 x10^3/uL (1.0-4.8) Monocytes # (Auto) 0.3 x10^3/uL (0.0-1.1) Eosinophils # (Auto) 0.1 x10^3/uL (0.0-0.7) Basophils # (Auto) 0.1 x10^3/uL (0.0-0.2) Glucose (Fingerstick) 245 mg/dL (70-99) 324 mg/dL (70-99) Sodium Level 145 mmol/L (136-145) Potassium Level 3.4 mmol/L (3.5-5.1) Chloride Level 102 mmol/L (98-107) Carbon Dioxide Level 28 mmol/L (21-32) Anion Gap 15 (6-14) Blood Urea Nitrogen 30 mg/dL (7-20) Creatinine 4.9 mg/dL (0.6-1.0) Estimated GFR (Cockcroft-Gault) 12.9 BUN/Creatinine Ratio 6 (6-20) Glucose Level 152 mg/dL (70-99) Calcium Level 8.7 mg/dL (8.5-10.1) Phosphorus Level 3.8 mg/dL (2.6-4.7) Magnesium Level 2.1 mg/dL (1.8-2.4) Total Bilirubin 0.7 mg/dL (0.2-1.0) Aspartate Amino Transf (AST/SGOT) 18 U/L (15-37) Alanine Aminotransferase (ALT/SGPT) 14 U/L (14-59) Alkaline Phosphatase 127 U/L (46-116) Total Protein 8.5 g/dL (6.4-8.2) Albumin 4.1 g/dL (3.4-5.0) Albumin/Globulin Ratio 0.9 (1.0-1.7) Lipase 32 U/L (73-393) Test 02/24/22 03:21 02/24/22 07:37 Glucose (Fingerstick) 412 mg/dL (70-99) 232 mg/dL (70-99) Laboratory Tests Test 02/23/22 15:30 02/23/22 15:39 02/23/22 19:33 02/23/22 23:22 White Blood Count 10.1 x10^3/uL (4.0-11.0) Red Blood Count 4.23 x10^6/uL (3.50-5.40) Hemoglobin 11.6 g/dL (12.0-15.5) Hematocrit 37.4 % (36.0-47.0) Mean Corpuscular Volume 88 fL (79-100) Mean Corpuscular Hemoglobin 27 pg (25-35) Mean Corpuscular Hemoglobin Concent 31 g/dL (31-37) Red Cell Distribution Width 15.4 % (11.5-14.5) Platelet Count 160 x10^3/uL (140-400) Neutrophils (%) (Auto) 86 % (31-73) Lymphocytes (%) (Auto) 11 % (24-48) Monocytes (%) (Auto) 3 % (0-9) Eosinophils (%) (Auto) 1 % (0-3) Basophils (%) (Auto) 1 % (0-3) Neutrophils # (Auto) 8.7 x10^3/uL (1.8-7.7) Lymphocytes # (Auto) 1.1 x10^3/uL (1.0-4.8) Monocytes # (Auto) 0.3 x10^3/uL (0.0-1.1) Eosinophils # (Auto) 0.1 x10^3/uL (0.0-0.7) Basophils # (Auto) 0.1 x10^3/uL (0.0-0.2) Glucose (Fingerstick) 245 mg/dL (70-99) 324 mg/dL (70-99) Sodium Level 145 mmol/L (136-145) Potassium Level 3.4 mmol/L (3.5-5.1) Chloride Level 102 mmol/L (98-107) Carbon Dioxide Level 28 mmol/L (21-32) Anion Gap 15 (6-14) Blood Urea Nitrogen 30 mg/dL (7-20) Creatinine 4.9 mg/dL (0.6-1.0) Estimated GFR (Cockcroft-Gault) 12.9 BUN/Creatinine Ratio 6 (6-20) Glucose Level 152 mg/dL (70-99) Calcium Level 8.7 mg/dL (8.5-10.1) Phosphorus Level 3.8 mg/dL (2.6-4.7) Magnesium Level 2.1 mg/dL (1.8-2.4) Total Bilirubin 0.7 mg/dL (0.2-1.0) Aspartate Amino Transf (AST/SGOT) 18 U/L (15-37) Alanine Aminotransferase (ALT/SGPT) 14 U/L (14-59) Alkaline Phosphatase 127 U/L (46-116) Total Protein 8.5 g/dL (6.4-8.2) Albumin 4.1 g/dL (3.4-5.0) Albumin/Globulin Ratio 0.9 (1.0-1.7) Lipase 32 U/L (73-393) Test 02/24/22 03:21 02/24/22 07:37 Glucose (Fingerstick) 412 mg/dL (70-99) 232 mg/dL (70-99) VTE Prophylaxis Ordered VTE Prophylaxis Devices: No VTE Pharmacological Prophylaxi: Yes Assessment/Plan Assessment/Plan acute abd pain nausea and vomiting, gastroparesis TYpe 1 diabetes consutl renal for ESRD on HD, has right tunneled line, consult GI for nausea and vomiting and abd pain, check KUB, she asked for tramadol for pain, will try nausea meds too Justifications for Admission Other Justification TANIA MOSER MD Feb 24, 2022 08:59
[2022-02-24] MEDS ORDERED: IV NORMAL SALINE 1000ML BAG 1,000 ML IV PRN ×2 (09:00)
[2022-02-24] MEDS ORDERED: DIALYSIS PATIENT. MC PRN (09:00)
--- NOTE | 2022-02-24 09:33 | PDOC2 ---
CONSULT Date of Consult Date of Consult DATE: 02/24/22 TIME: 09:21 Reason for Consult Reason for Consult: ESRD Source Source: Chart review, Patient History of Present Illness Reason for Visit: Patient is a 26 year old AA female with past medical of hypertension, diabetes type 1 with gastroparesis, ESRD who presents with nausea, diarrhea. On arrival, patient was gagging herself in order to induce vomiting and reported in the ER that she is doing this to make her "stomach feel better." Patient states she typically goes to [facility] for care. Patient denies fever, chills. No Diarrhea, hematemesis or bloody stool. Denies F/C . No CP or SOB She reports she has been on dialysis only since past 2 months . She goes to [facility] unit under care of DR Vargas . She has TDC and AVF- its not mature yet . She states cause of ESRD is DM. She has some UOP . Denies any symptoms of UTI She went for dialysis on Tuesday Past Medical History Past Medical History Cardiovascular: HTN Renal/: Chronic renal failure (ESRD) Endocrine: Diabetes type 1` Past Surgical History Past Surgical History AV Fistula Family History Family History No Significant Social History Social History ALCOHOL: none Drugs: Marijuana (frequent) Current Problem List Problem List Problems Medical Problems: (1) History of end stage renal disease Status: Acute (2) Hx of diabetic gastroparesis Status: Acute (3) Intractable nausea and vomiting Status: Acute Current Medications Current Medications Current Medications Ondansetron HCl (Zofran Odt) 4 mg 1X ONCE PO ; Start 02/23/22 at 15:45; Stop 02/23/22 at 16:26; Status DC Ondansetron HCl (Zofran) 4 mg 1X ONCE IVP Last administered on 02/23/22at 16:11; Start 02/23/22 at 15:45; Stop 02/23/22 at 15:46; Status DC Metoclopramide HCl (Reglan Vial) 5 mg 1X ONCE IVP Last administered on 02/23/22at 17:53; Start 02/23/22 at 16:30; Stop 02/23/22 at 16:31; Status DC Lorazepam (Ativan Inj) 1 mg 1X ONCE IVP ; Start 02/23/22 at 18:15; Stop 02/23/22 at 18:09; Status DC Haloperidol Lactate (Haldol Inj) 2.5 mg 1X ONCE IVP Last administered on 02/23/22at 19:18; Start 02/23/22 at 18:15; Stop 02/23/22 at 18:16; Status DC Hydralazine HCl (Apresoline Inj) 10 mg 1X ONCE IVP Last administered on 02/23/22at 19:48; Start 02/23/22 at 19:30; Stop 02/23/22 at 19:31; Status DC Ondansetron HCl (Zofran) 4 mg PRN Q8HRS PRN IVP NAUSEA/VOMITING; Start 02/23/22 at 20:45; Stop 02/24/22 at 20:44 Insulin Human Lispro (HumaLOG) 0-7 UNITS TIDWMEALS SQ ; Start 02/24/22 at 08:00; Stop 02/24/22 at 04:07; Status DC Dextrose (Dextrose 50%-Water Syringe) 12.5 gm PRN Q15MIN PRN IV SEE COMMENTS; Start 02/24/22 at 00:30; Stop 02/24/22 at 04:07; Status DC Dextrose (Iv Dextrose 5%) 250 ml PRN Q15MIN PRN IV SEE COMMENTS; Start 02/24/22 at 00:30; Stop 02/24/22 at 04:07; Status DC Insulin Human Lispro (HumaLOG) 0-9 UNITS Q4H SQ Last administered on 02/24/22at 08:55; Start 02/24/22 at 04:00 Dextrose (Dextrose 50%-Water Syringe) 12.5 gm PRN Q15MIN PRN IV SEE COMMENTS; Start 02/24/22 at 04:15 Dextrose (Iv Dextrose 5%) 250 ml PRN Q15MIN PRN IV SEE COMMENTS; Start 02/24/22 at 04:15 Lorazepam (Ativan Inj) 2 mg PRN Q4HRS PRN IVP ANXIETY / AGITATION; Start 02/24/22 at 09:00 Sodium Chloride 1,000 ml @ 1,000 mls/hr Q1H PRN IV hypotension; Start 02/24/22 at 09:00; Stop 02/24/22 at 14:59 Sodium Chloride 1,000 ml @ 400 mls/hr Q2H30M PRN IV PATENCY; Start 02/24/22 at 09:00; Stop 02/24/22 at 20:59 Info (PHARMACY MONITORING -- do not chart) 1 each PRN DAILY PRN MC SEE COMMENTS; Start 02/24/22 at 09:00 Active Scripts Active Reported Gabapentin 600 Mg Tablet 100 Mg PO TID Calcium Acetate 667 Mg Tablet 1 Tab PO BID 30 Days Torsemide 20 Mg Tablet 1 Tab PO TID Celexa (Citalopram Hydrobromide) 20 Mg Tablet 1 Tab PO DAILY [dexcom] Novolog (Insulin Aspart) 100 Unit/1 Ml Cartridge 0.5 Unit SQ Q1HR Isosorbide Mononitrate Er (Isosorbide Mononitrate) 60 Mg Tab.er.24h 1 Tab PO DAILY Carvedilol 25 Mg Tablet Unknown Dose PO BIDWMEALS Hydralazine Hcl 50 Mg Tablet 1 Tab PO TID Allergies Allergies: Coded Allergies: fentanyl (Verified Allergy, Intermediate, 02/23/22) hydrocodone (Verified Allergy, Intermediate, 11/12/19) prochlorperazine (Verified Allergy, Intermediate, 11/12/19) ROS Review of System As per HPI, rest of the ROS is negative Physical Exam Physical Exam General NAD, lying comfortably in bed HENT: Normocephalic, atraumatic, OM moist Eyes: EOMI, conjunctiva normal, no discharge. Neck: Normal range of motion, Cardiovascular: Heart regular rate and rhythm. Lungs CTA, Non labored : No SP tenderness, no CVA tenderness. No [place] Extremities: No cyanosis, no clubbing, no edema. Neurologic: Alert and oriented x4, motor and sensory function grossly intact, no focal deficits noted. Psych Cooperative Derm No Rash Vital Signs Vital Signs Date Time Temp Pulse Resp B/P (MAP) Pulse Ox O2 Delivery O2 Flow Rate FiO2 02/24/22 03:05 98.4 103 18 116/49 (71) 98 Room Air 98.4 Assessment & Plan ESRD - On HD [facility]WF [facility]. Etiology Diabetic nephrosclerosis New Onset- has been on dialysis for 2 months. Dialysis today , discussed treatment plan with [facility] Tunneled [facility] . Has AVF - Not mature HypoKalemia - Mild , Adjust Dialysate K Anemia- No indication for REGIS HTN- antihypertensives DM 1 - per primary Nausea/Vomiting POA - GI consulted Gastroparesis Labs Labs Laboratory Tests Test 4/5/22 15:30 02/23/22 15:39 02/23/22 19:33 02/23/22 23:22 White Blood Count 10.1 x10^3/uL (4.0-11.0) Red Blood Count 4.23 x10^6/uL (3.50-5.40) Hemoglobin 11.6 g/dL (12.0-15.5) Hematocrit 37.4 % (36.0-47.0) Mean Corpuscular Volume 88 fL (79-100) Mean Corpuscular Hemoglobin 27 pg (25-35) Mean Corpuscular Hemoglobin Concent 31 g/dL (31-37) Red Cell Distribution Width 15.4 % (11.5-14.5) Platelet Count 160 x10^3/uL (140-400) Neutrophils (%) (Auto) 86 % (31-73) Lymphocytes (%) (Auto) 11 % (24-48) Monocytes (%) (Auto) 3 % (0-9) Eosinophils (%) (Auto) 1 % (0-3) Basophils (%) (Auto) 1 % (0-3) Neutrophils # (Auto) 8.7 x10^3/uL (1.8-7.7) Lymphocytes # (Auto) 1.1 x10^3/uL (1.0-4.8) Monocytes # (Auto) 0.3 x10^3/uL (0.0-1.1) Eosinophils # (Auto) 0.1 x10^3/uL (0.0-0.7) Basophils # (Auto) 0.1 x10^3/uL (0.0-0.2) Glucose (Fingerstick) 245 mg/dL (70-99) 324 mg/dL (70-99) Sodium Level 145 mmol/L (136-145) Potassium Level 3.4 mmol/L (3.5-5.1) Chloride Level 102 mmol/L (98-107) Carbon Dioxide Level 28 mmol/L (21-32) Anion Gap 15 (6-14) Blood Urea Nitrogen 30 mg/dL (7-20) Creatinine 4.9 mg/dL (0.6-1.0) Estimated GFR (Cockcroft-Gault) 12.9 BUN/Creatinine Ratio 6 (6-20) Glucose Level 152 mg/dL (70-99) Calcium Level 8.7 mg/dL (8.5-10.1) Phosphorus Level 3.8 mg/dL (2.6-4.7) Magnesium Level 2.1 mg/dL (1.8-2.4) Total Bilirubin 0.7 mg/dL (0.2-1.0) Aspartate Amino Transf (AST/SGOT) 18 U/L (15-37) Alanine Aminotransferase (ALT/SGPT) 14 U/L (14-59) Alkaline Phosphatase 127 U/L (46-116) Total Protein 8.5 g/dL (6.4-8.2) Albumin 4.1 g/dL (3.4-5.0) Albumin/Globulin Ratio 0.9 (1.0-1.7) Lipase 32 U/L (73-393) Test 02/24/22 03:21 02/24/22 07:37 Glucose (Fingerstick) 412 mg/dL (70-99) 232 mg/dL (70-99) Laboratory Tests Test 02/23/22 15:30 02/23/22 15:39 02/23/22 19:33 02/23/22 23:22 White Blood Count 10.1 x10^3/uL (4.0-11.0) Red Blood Count 4.23 x10^6/uL (3.50-5.40) Hemoglobin 11.6 g/dL (12.0-15.5) Hematocrit 37.4 % (36.0-47.0) Mean Corpuscular Volume 88 fL (79-100) Mean Corpuscular Hemoglobin 27 pg (25-35) Mean Corpuscular Hemoglobin Concent 31 g/dL (31-37) Red Cell Distribution Width 15.4 % (11.5-14.5) Platelet Count 160 x10^3/uL (140-400) Neutrophils (%) (Auto) 86 % (31-73) Lymphocytes (%) (Auto) 11 % (24-48) Monocytes (%) (Auto) 3 % (0-9) Eosinophils (%) (Auto) 1 % (0-3) Basophils (%) (Auto) 1 % (0-3) Neutrophils # (Auto) 8.7 x10^3/uL (1.8-7.7) Lymphocytes # (Auto) 1.1 x10^3/uL (1.0-4.8) Monocytes # (Auto) 0.3 x10^3/uL (0.0-1.1) Eosinophils # (Auto) 0.1 x10^3/uL (0.0-0.7) Basophils # (Auto) 0.1 x10^3/uL (0.0-0.2) Glucose (Fingerstick) 245 mg/dL (70-99) 324 mg/dL (70-99) Sodium Level 145 mmol/L (136-145) Potassium Level 3.4 mmol/L (3.5-5.1) Chloride Level 102 mmol/L (98-107) Carbon Dioxide Level 28 mmol/L (21-32) Anion Gap 15 (6-14) Blood Urea Nitrogen 30 mg/dL (7-20) Creatinine 4.9 mg/dL (0.6-1.0) Estimated GFR (Cockcroft-Gault) 12.9 BUN/Creatinine Ratio 6 (6-20) Glucose Level 152 mg/dL (70-99) Calcium Level 8.7 mg/dL (8.5-10.1) Phosphorus Level 3.8 mg/dL (2.6-4.7) Magnesium Level 2.1 mg/dL (1.8-2.4) Total Bilirubin 0.7 mg/dL (0.2-1.0) Aspartate Amino Transf (AST/SGOT) 18 U/L (15-37) Alanine Aminotransferase (ALT/SGPT) 14 U/L (14-59) Alkaline Phosphatase 127 U/L (46-116) Total Protein 8.5 g/dL (6.4-8.2) Albumin 4.1 g/dL (3.4-5.0) Albumin/Globulin Ratio 0.9 (1.0-1.7) Lipase 32 U/L (73-393) Test 02/24/22 03:21 02/24/22 07:37 Glucose (Fingerstick) 412 mg/dL (70-99) 232 mg/dL (70-99) Review All relevant outside records, renal labs, imaging studies, telemetry/EKG's were reviewed. BEVERLY MELTON MD Feb 24, 2022 09:33
[2022-02-24 11:00] VITALS: BP 99/56
[2022-02-24 14:27] VITALS: BP 130/59
--- NOTE | 2022-02-24 15:17 | NUR ---
SS following for discharge planning. SS reviewed pt chart and discussed with pt RN. Pt is from home and is currently on room air. Nephrology following. Pt has established outpatient hemodialysis Tuesday, Tuesday, and Tuesday. SS will continue to follow for discharge planning.
[2022-02-24] MEDS ORDERED: traMADol 50 MG TABLET PO PRN (15:30)
[2022-02-24] MEDS ORDERED: INSULIN ASPART SQ SCH (16:00)
--- NOTE | 2022-02-24 16:21 | PDOC2 ---
GI CONSULT Date of Service: DATE: 02/24/22 TIME: 16:03 Reason For Consult: n/v HPI: HPI: 26 y/o female w/ h/o DM and ESRD admitted through ER yesterday. Ill since yesterday w/ n/v, then abdominal pain. Denies precipitating events. Denies reflux/heartburn, dysphagia, constipation, hematochezia, melena, and weight loss. Has had some loose/mushy stools. Thinks maybe blood in emesis. Reports previous EGD and colonoscopy @ [facility] [place] 1-2 years ago. Says biopsies showed H. pylori infection and that she finished treatment. Recalls no significant colonoscopy findings. Also gives h/o gastroparesis w/ previous GES @ [facility] [place]. Took Reglan w/ improvement for about 4 months, then ran out of refills and didn't have a doctor so hasn't taken this for about a year. No GB, liver, pancreas, or PUD history. Denies frequent n/v episodes. Says last A1c was 6 something. Frequent marijuana use. Has taken Tramadol in the past for abdominal pain. ER summary report indicates urinary and fecal incontinence prior to admission, also pt sticking finger down her throat. Accelerated HTN noted then. PMH: PMH: HTN, DM type 1, ESRD on HD FH: Family History: No pertinent hx (denies GI cancers) Social History: Smoke: No ALCOHOL: none Drugs: Marijuana (frequent) ROS: GEN: Denies fevers, chills, sweats HEENT: Denies blurred vision, sore throat CV: Denies chest pain RESP: Denies shortness of air, cough GI: Per HPI : Denies hematuria, dysuria ENDO: Denies weight changes NEURO: Denies confusion, dizziness MSK: Denies weakness, joint pain/swelling SKIN: Denies jaundice, pruritus Vitals: Vitals: Vital Signs Date Time Temp Pulse Resp B/P (MAP) Pulse Ox O2 Delivery O2 Flow Rate FiO2 02/24/22 14:27 97 16 130/59 (82) Room Air 02/24/22 11:00 100.1 97 100.1 Labs: Labs: Laboratory Tests Test 02/23/22 19:33 02/23/22 23:22 02/24/22 03:21 02/24/22 07:37 Sodium Level 145 mmol/L (136-145) Potassium Level 3.4 mmol/L (3.5-5.1) Chloride Level 102 mmol/L (98-107) Carbon Dioxide Level 28 mmol/L (21-32) Anion Gap 15 (6-14) Blood Urea Nitrogen 30 mg/dL (7-20) Creatinine 4.9 mg/dL (0.6-1.0) Estimated GFR (Cockcroft-Gault) 12.9 BUN/Creatinine Ratio 6 (6-20) Glucose Level 152 mg/dL (70-99) Calcium Level 8.7 mg/dL (8.5-10.1) Phosphorus Level 3.8 mg/dL (2.6-4.7) Magnesium Level 2.1 mg/dL (1.8-2.4) Total Bilirubin 0.7 mg/dL (0.2-1.0) Aspartate Amino Transf (AST/SGOT) 18 U/L (15-37) Alanine Aminotransferase (ALT/SGPT) 14 U/L (14-59) Alkaline Phosphatase 127 U/L (46-116) Total Protein 8.5 g/dL (6.4-8.2) Albumin 4.1 g/dL (3.4-5.0) Albumin/Globulin Ratio 0.9 (1.0-1.7) Lipase 32 U/L (73-393) Hepatitis B Surface Antigen Nonreactive (Nonreactive) Glucose (Fingerstick) 324 mg/dL (70-99) 412 mg/dL (70-99) 232 mg/dL (70-99) Test 02/24/22 10:50 02/24/22 14:22 Glucose (Fingerstick) 180 mg/dL (70-99) 265 mg/dL (70-99) Allergies: Coded Allergies: fentanyl (Verified Allergy, Intermediate, 02/23/22) hydrocodone (Verified Allergy, Intermediate, 11/12/19) prochlorperazine (Verified Allergy, Intermediate, 11/12/19) Medications: Current Medications Medications (Trade) Dose Ordered Sig/Stephanie Route PRN Reason Start Time Stop Time Status Last Admin Dose Admin Metoclopramide HCl (Reglan Vial) 5 mg 1X ONCE IVP 02/23/22 16:30 02/23/22 16:31 DC 02/23/22 17:53 Haloperidol Lactate (Haldol Inj) 2.5 mg 1X ONCE IVP 02/23/22 18:15 02/23/22 18:16 DC 02/23/22 19:18 Hydralazine HCl (Apresoline Inj) 10 mg 1X ONCE IVP 02/23/22 19:30 02/23/22 19:31 DC 02/23/22 19:48 Ondansetron HCl (Zofran) 4 mg PRN Q8HRS PRN IVP NAUSEA/VOMITING 02/23/22 20:45 02/24/22 20:44 02/24/22 13:10 Insulin Human Lispro (HumaLOG) 0-9 UNITS Q4H SQ 02/24/22 04:00 02/24/22 14:31 Imaging: Imaging: KUB 02/24/22 pending PE: GEN: uncomfortable, has very long fingernails HEENT: Atraumatic, PERRL LUNGS: clear anteriorly, poor effort HEART: mildly tachycardic ABD: soft - epigastric tenderness then pushed my hand away, said "no" - emesis basin w/ thin brownish contents, also a dime-sized amount of reddish mucous EXTREMITY: No edema SKIN: No rashes, no jaundice NEURO/PSYCH: A & O 3, speaks quietly, tearful at times A/P: A/P: N/v, abdominal pain, loose stools Chronic anemia H/o gastroparesis H/o H. pylori infection - says completed treatment HTN, DM, ESRD on HD, marijuana use -- N/v probably multi-factorial - quite hypertensive in ER (better now), apparent h/o diabetic gastroparesis, possibly complicated by marijuana use (though indicates no issues w/ n/v for a long time). Still not feeling well, non- complaint w/ exam but able to provide some details on past GI workup. Await KUB, consider additional abd imaging if indicated. Has regular diet ordered, will back off to clear liquids for now. Add IV PPI. Says has done well with Reglan in the past (and received dose in ER) - will resume (low dose IV for now). Hopefully she's no longer sticking her finger down her throat, particularly with long fingernails. Check anemia parameters for completeness, also tox screen, stool studies (difficult to say if really having diarrhea), and UA if able. Will ask for records of previous EGD, colonoscopy, and GES. Consider changing other meds to IV if unable to tolerate PO. Probably should avoid marijuana. SULAIMAN CASH Feb 24, 2022 16:21
--- NOTE | 2022-02-24 16:26 | RAD ---
EXAMINATION: XR ABDOMEN 1V CLINICAL HISTORY: Abdominal pain. TECHNIQUE: XR ABDOMEN 1V COMPARISON: None FINDINGS/ IMPRESSION: Nonspecific bowel gas pattern with no evidence of obstruction. No suspicious abdominal calcifications . No evidence of acute osseous abnormality. Electronically signed by: Kiran Bashir DO (02/24/2022 4:23 PM) [id number]
[2022-02-24] MEDS: CITALOPRAM 20 MG TABLET. PO SCH (16:30)
[2022-02-24] MEDS: CALCIUM ACETATE 667 MG CAPSULE PO SCH (17:00)
[2022-02-24] MEDS: PANTOPRAZOLE IV PUSH 40 MG VIAL. IVP SCH (17:14)
[2022-02-24] MEDS: METOCLOPRAMIDE HCL 10 MG/2 ML VIAL. IVP SCH ×2 (17:14→21:05)
[2022-02-24 18:54] VITALS: BP 138/64
[2022-02-24] MEDS: GABAPENTIN 100 MG CAPSULE. PO SCH (21:06)
[2022-02-24] MEDS: TORSEMIDE 20 MG TABLET. PO SCH (21:06)
[2022-02-24 22:38] VITALS: BP 151/76
[2022-02-25] MEDS: INSULIN LISPRO 300 UNITS/3 ML VIAL. SQ SCH ×4 (00:33→11:54)
[2022-02-25 03:00] VITALS: BP_SYST 120; BP_SYST 151; BP_DIAS 50; BP_DIAS 76
[2022-02-25] MEDS: METOCLOPRAMIDE HCL 10 MG/2 ML VIAL. IVP SCH ×2 (06:18→11:51)
[2022-02-25] MEDS: PANTOPRAZOLE IV PUSH 40 MG VIAL. IVP SCH (06:23)
[2022-02-25 07:00] VITALS: BP 115/55
[2022-02-25] MEDS: TORSEMIDE 20 MG TABLET. PO SCH ×2 (08:37→14:01)
[2022-02-25] MEDS: CITALOPRAM 20 MG TABLET. PO SCH (08:37)
[2022-02-25] MEDS: CALCIUM ACETATE 667 MG CAPSULE PO SCH (08:37)
[2022-02-25] MEDS: GABAPENTIN 100 MG CAPSULE. PO SCH ×2 (08:38→14:00)
[2022-02-25] MEDS ORDERED: ISOSORBIDE MONONITRATE ER 30 MG TAB.ER.24H PO SCH (09:00)
--- NOTE | 2022-02-25 09:44 | PDOC ---
Date of Service: DATE: 02/25/22 TIME: 09:39 Subjective: Subjective: Drowsy - in and out of sleep - doesn't say much except "little better." No vomiting. Objective: Objective: 3 stools charted. Vital Signs: Vital Signs Date Time Temp Pulse Resp B/P (MAP) Pulse Ox O2 Delivery O2 Flow Rate FiO2 02/25/22 08:37 101 115/55 02/25/22 08:00 Room Air 02/25/22 07:00 97.4 16 98 97.4 Labs: Laboratory Tests Test 02/24/22 10:50 02/24/22 14:22 02/24/22 18:08 02/24/22 19:43 Glucose (Fingerstick) 180 mg/dL 265 mg/dL 225 mg/dL 342 mg/dL Test 02/25/22 00:19 02/25/22 02:46 02/25/22 06:24 02/25/22 08:16 Glucose (Fingerstick) 299 mg/dL 232 mg/dL 451 mg/dL 384 mg/dL Imaging: KUB IMPRESSION: Nonspecific bowel gas pattern with no evidence of obstruction. No suspicious abdominal calcifications. No evidence of acute osseous abnormality. PE: GEN: NAD, sleeping LUNGS: CTAB HEART: borderline tachycardic ABD: soft, non-tender NEURO/PSYCH: drowsy A/P: N/v, abdominal pain, loose stools ACD/CHA H/o gastroparesis HTN, DM, ESRD, marijuana use -- Better today, continue same for now - will check if outside records received. Justicifation of Admission Dx: Justifications for Admission: Justification of Admission Dx: Yes SULAIMAN CASH Feb 25, 2022 09:44
[2022-02-25 11:00] VITALS: BP 106/50
--- NOTE | 2022-02-25 11:19 | PDOC ---
DATE OF SERVICE DATE: 02/25/22 TIME: 11:17 SUBJECTIVE ROS Resting comfortably. No Vomiting. No SOB OBJECTIVE Vital Signs Vital Signs Date Time Temp Pulse Resp B/P (MAP) Pulse Ox O2 Delivery O2 Flow Rate FiO2 02/25/22 08:37 101 115/55 02/25/22 08:00 Room Air 02/25/22 07:00 97.4 16 98 97.4 I & 0 Intake and Output 02/25/22 06:59 Intake Total 10 ml Balance 10 ml Intake Oral 10 ml # Bowel Movements 3 PHYSICAL EXAM Physical Exam General NAD, lying comfortably in bed HENT: Normocephalic, atraumatic, OM moist Eyes: EOMI, conjunctiva normal, no discharge. Neck: Normal range of motion, Cardiovascular: Heart regular rate and rhythm. Lungs CTA, Non labored : No SP tenderness, no CVA tenderness. No [place] Extremities: No cyanosis, no clubbing, no edema. Neurologic: Alert and oriented x4, motor and sensory function grossly intact, no focal deficits noted. Psych Cooperative Derm No Rash Vital Signs Vital Signs Date Time Temp Pulse Resp B/P (MAP) Pulse Ox O2 Delivery O2 Flow Rate FiO2 02/24/22 03:05 98.4 103 18 116/49 (71) 98 Room Air 98.4 DIAGNOSIS/ASSESSMENT Assessment & Plan ESRD - On HD MWF @ [facility]. Etiology Diabetic nephrosclerosis [place]- has been on dialysis for 2 months. No indication for dialysis today Access - Tunneled HDC . Has AVF - Not mature HypoKalemia - Mild POA Anemia- No indication for REGIS HTN- antihypertensives DM 1 - per primary Nausea/Vomiting POA - GI consulted Gastroparesis DC per primary/GI COMMENT/RELEVANT DATA Meds Current Medications Medications (Trade) Dose Ordered Sig/Stephanie Start Time Stop Time Status Last Admin Dose Admin Calcium Acetate (Phoslo) 667 mg BIDWMEALS 02/24/22 17:00 02/25/22 08:37 667 MG Citalopram Hydrobromide (CeleXA) 20 mg DAILY 02/24/22 16:30 02/25/22 08:37 20 MG Dextrose (Dextrose 50%-Water Syringe) 12.5 gm PRN Q15MIN PRN 02/24/22 04:15 Dextrose (Iv Dextrose 5%) 250 ml PRN Q15MIN PRN 02/24/22 04:15 Gabapentin (Neurontin) 100 mg TID 02/24/22 21:00 02/25/22 08:38 100 MG Haloperidol Lactate (Haldol Inj) 2.5 mg 1X ONCE 02/23/22 18:15 02/23/22 18:16 DC 02/23/22 19:18 2.5 MG Hydralazine HCl (Apresoline Inj) 10 mg 1X ONCE 02/23/22 19:30 02/23/22 19:31 DC 02/23/22 19:48 10 MG Hydralazine HCl (Apresoline) 50 mg TID 02/24/22 21:00 02/25/22 08:37 50 MG Info (PHARMACY MONITORING -- do not chart) 1 each PRN DAILY PRN 02/24/22 09:00 Insulin Human Lispro (HumaLOG) 0-9 UNITS Q4H 02/24/22 04:00 02/25/22 08:31 9 UNITS Isosorbide Mononitrate (Imdur) 60 mg DAILY 02/25/22 09:00 02/25/22 08:37 60 MG Lorazepam (Ativan Inj) 2 mg PRN Q4HRS PRN 02/24/22 09:00 Metoclopramide HCl (Reglan Vial) 5 mg QIDACHS 02/24/22 16:30 02/25/22 06:18 5 MG Non-Formulary Medication (Insulin Aspart (Novolog)) 0.5 unit Q1HR 02/24/22 16:00 UNV Ondansetron HCl (Zofran Odt) 4 mg 1X ONCE 02/23/22 15:45 02/23/22 16:26 DC Ondansetron HCl (Zofran) 4 mg PRN Q8HRS PRN 02/23/22 20:45 02/24/22 20:44 DC 02/24/22 13:10 4 MG Pantoprazole Sodium (PROTONIX VIAL for IV PUSH) 40 mg DAILYAC 02/24/22 16:30 02/25/22 06:23 40 MG Sodium Chloride 1,000 ml @ 400 mls/hr Q2H30M PRN 02/24/22 09:00 02/24/22 20:59 DC Torsemide (Demadex) 20 mg TID 02/24/22 21:00 02/25/22 08:37 20 MG Tramadol HCl (Ultram) 50 mg PRN Q6HRS PRN 02/24/22 15:30 Lab Laboratory Tests Test 02/24/22 14:22 02/24/22 18:08 02/24/22 19:43 02/25/22 00:19 Glucose (Fingerstick) 265 mg/dL (70-99) 225 mg/dL (70-99) 342 mg/dL (70-99) 299 mg/dL (70-99) Test 02/25/22 02:46 02/25/22 06:24 02/25/22 08:16 Glucose (Fingerstick) 232 mg/dL (70-99) 451 mg/dL (70-99) 384 mg/dL (70-99) Results All relevant outside records, renal labs, imaging studies, telemetry/EKG's were reviewed. Justicifation of Admission Dx: Justifications for Admission: Justification of Admission Dx: Yes BEVERLY MELTON MD Feb 25, 2022 11:19
[2022-02-25 14:01] VITALS: BP 109/59
[2022-02-25] MEDS ORDERED: METO5TAB55 PO (14:23)
--- NOTE | 2022-02-25 14:24 | PDOC3 ---
Discharge Summary Visit Information Date of Admission: Feb 23, 2022 Date of Discharge: Feb 25, 2022 Final Diagnosis N/v, abdominal pain, loose stools ACD/CHA H/o gastroparesis HTN, DM, ESRD, marijuana useProblems Medical Problems: (1) History of end stage renal disease Status: Acute (2) Hx of diabetic gastroparesis Status: Acute (3) Intractable nausea and vomiting Status: Acute Brief Hospital Course Allergies Allergies Coded Allergies Type Severity Reaction Last Updated Verified fentanyl Allergy Intermediate 02/23/22 Yes hydrocodone Allergy Intermediate 11/12/19 Yes prochlorperazine Allergy Intermediate 11/12/19 Yes Vital Signs Vital Signs Date Time Temp Pulse Resp B/P (MAP) Pulse Ox O2 Delivery O2 Flow Rate FiO2 02/25/22 14:01 82 109/59 02/25/22 11:00 98.3 16 98 Room Air 98.3 Lab Results Laboratory Tests Test 02/23/22 15:30 02/23/22 15:39 02/23/22 19:33 02/23/22 23:22 White Blood Count 10.1 x10^3/uL (4.0-11.0) Red Blood Count 4.23 x10^6/uL (3.50-5.40) Hemoglobin 11.6 g/dL (12.0-15.5) Hematocrit 37.4 % (36.0-47.0) Mean Corpuscular Volume 88 fL (79-100) Mean Corpuscular Hemoglobin 27 pg (25-35) Mean Corpuscular Hemoglobin Concent 31 g/dL (31-37) Red Cell Distribution Width 15.4 % (11.5-14.5) Platelet Count 160 x10^3/uL (140-400) Neutrophils (%) (Auto) 86 % (31-73) Lymphocytes (%) (Auto) 11 % (24-48) Monocytes (%) (Auto) 3 % (0-9) Eosinophils (%) (Auto) 1 % (0-3) Basophils (%) (Auto) 1 % (0-3) Neutrophils # (Auto) 8.7 x10^3/uL (1.8-7.7) Lymphocytes # (Auto) 1.1 x10^3/uL (1.0-4.8) Monocytes # (Auto) 0.3 x10^3/uL (0.0-1.1) Eosinophils # (Auto) 0.1 x10^3/uL (0.0-0.7) Basophils # (Auto) 0.1 x10^3/uL (0.0-0.2) Glucose (Fingerstick) 245 mg/dL (70-99) 324 mg/dL (70-99) Sodium Level 145 mmol/L (136-145) Potassium Level 3.4 mmol/L (3.5-5.1) Chloride Level 102 mmol/L (98-107) Carbon Dioxide Level 28 mmol/L (21-32) Anion Gap 15 (6-14) Blood Urea Nitrogen 30 mg/dL (7-20) Creatinine 4.9 mg/dL (0.6-1.0) Estimated GFR (Cockcroft-Gault) 12.9 BUN/Creatinine Ratio 6 (6-20) Glucose Level 152 mg/dL (70-99) Hemoglobin A1c 7.0 % (4.8-5.6) Calcium Level 8.7 mg/dL (8.5-10.1) Phosphorus Level 3.8 mg/dL (2.6-4.7) Magnesium Level 2.1 mg/dL (1.8-2.4) Iron Level 26 ug/dL (50-170) Total Iron Binding Capacity 192 ug/dL (250-450) Iron Saturation 14 % (15-34) Total Bilirubin 0.7 mg/dL (0.2-1.0) Aspartate Amino Transf (AST/SGOT) 18 U/L (15-37) Alanine Aminotransferase (ALT/SGPT) 14 U/L (14-59) Alkaline Phosphatase 127 U/L (46-116) Total Protein 8.5 g/dL (6.4-8.2) Albumin 4.1 g/dL (3.4-5.0) Albumin/Globulin Ratio 0.9 (1.0-1.7) Lipase 32 U/L (73-393) Hepatitis B Surface Antigen Nonreactive (Nonreactive) Test 02/24/22 03:21 02/24/22 07:37 02/24/22 10:50 02/24/22 14:22 Glucose (Fingerstick) 412 mg/dL (70-99) 232 mg/dL (70-99) 180 mg/dL (70-99) 265 mg/dL (70-99) Test 02/24/22 18:08 02/24/22 19:43 02/25/22 00:19 02/25/22 02:46 Glucose (Fingerstick) 225 mg/dL (70-99) 342 mg/dL (70-99) 299 mg/dL (70-99) 232 mg/dL (70-99) Test 02/25/22 06:24 02/25/22 08:16 02/25/22 11:49 Glucose (Fingerstick) 451 mg/dL (70-99) 384 mg/dL (70-99) 243 mg/dL (70-99) Laboratory Tests Test 02/24/22 18:08 02/24/22 19:43 02/25/22 00:19 02/25/22 02:46 Glucose (Fingerstick) 225 mg/dL (70-99) 342 mg/dL (70-99) 299 mg/dL (70-99) 232 mg/dL (70-99) Test 02/25/22 06:24 02/25/22 08:16 02/25/22 11:49 Glucose (Fingerstick) 451 mg/dL (70-99) 384 mg/dL (70-99) 243 mg/dL (70-99) Brief Hospital Course Ms. Parrish is a 26 old female admi twith acute abd pain, exacerbation of gastroparesis better with meds she follows at [facility] she asked for a reglan script for DC Discharge Information Condition at Discharge: Improved Follow Up: Weeks Scheduled Calcium Acetate (Calcium Acetate) 667 Mg Tablet, 1 TAB PO BID for supplement for 30 Days, #60 Ref 0 (Reported) Entered as Reported by: GEORGI ARANDA LPN on 02/24/22841 Last Taken: Unknown Dose on Unknown Date & Time Last Action: Converted on 02/24/22 153 by TANIA MOSER Carvedilol (Carvedilol) 25 Mg Tablet, Unknown Dose PO BIDWMEALS for CARDIAC, (Reported) Entered as Reported by: Cesar Galindo on 02/24/22 0634 Last Taken: Unknown Dose on 02/24/22 Last Action: Reviewed on 02/24/22841 by GEORGI ARANDA LPN Citalopram Hydrobromide (Celexa) 20 Mg Tablet, 1 TAB PO DAILY for anxiety/depression, #90 Ref 3 (Reported) Entered as Reported by: GEORGI ARANDA LPN on 02/24/22841 Last Action: Continued on 02/24/221530 by TANIA MOSER Gabapentin (Gabapentin) 600 Mg Tablet, 100 MG PO TID for neurogenic pain, (Reported) Entered as Reported by: GEORGI ARANDA LPN on 02/24/22842 Last Taken: Unknown Dose on Unknown Date & Time Last Action: Converted on 02/24/221530 by TANIA MOSER Hydralazine Hcl (Hydralazine Hcl) 50 Mg Tablet, 1 TAB PO TID for , (Reported) Entered as Reported by: Cesar Galindo on 02/24/22632 Last Action: Continued on 02/24/221530 by TANIA MOSER Insulin Aspart (Novolog) 100 Unit/1 Ml Cartridge, 0.5 UNIT SQ Q1HR for , (Reported) Entered as Reported by: Cesar Galindo on 02/24/22633 Last Action: Converted on 02/24/221530 by TANIA MOSER Isosorbide Mononitrate (Isosorbide Mononitrate Er) 60 Mg Tab.er.24h, 1 TAB PO DAILY for , #30 Ref 5 (Reported) Entered as Reported by: Cesar Galindo on 02/24/22633 Last Action: Converted on 02/24/221530 by TANIA MOSER Torsemide (Torsemide) 20 Mg Tablet, 1 TAB PO TID for diuretic, #90 Ref 1 (Reported) Entered as Reported by: GEORGI ARANDA LPN on 02/24/22841 Last Action: Continued on 02/24/221530 by TANIA MOSER Scheduled PRN Metoclopramide Hcl (Reglan) 5 Mg Tablet, 1 TAB PO TID PRN for NAUSEA for 30 Days, #90 Ref 0 1 hour prior to procedure Prescribed by: TANIA MOSER on 02/25/221422 Miscellaneous Medications [dexcom] , (Reported) Entered as Reported by: Cesar Galindo on 02/24/22633 Last Action: Reviewed on 02/24/22841 by GEORGI ARANDA LPN Discontinued Medications Atorvastatin Calcium (Atorvastatin Calcium) 10 Mg Tablet, Unknown Dose PO DAILY for , #30 Ref 5 (Reported) Entered as Reported by: Cesar Galindo on 02/24/22633 Last Taken: UNKNOWN on Unknown Date & Time Last Action: Discontinued on 02/24/22841 by GEORGI ARANDA LPN Citalopram Hydrobromide (Citalopram HBr) 30 Mg Capsule, Unknown Dose PO DAILY for , (Reported) Discontinued Reason: Prescription changed Entered as Reported by: Cesar Galindo on 02/24/22633 Last Taken: UNKNOWN on Unknown Date & Time Last Action: New Order on 02/24/22633 by Cesar Galindo Torsemide (Torsemide) 5 Mg Tablet, Unknown Dose PO DAILY for for 30 Days, Ref 0 (Reported) Discontinued Reason: Prescription changed Entered as Reported by: Cesar Galindo on 02/24/22633 Last Taken: UNKNOWN on Unknown Date & Time Last Action: New Order on 02/24/22633 by Cesar Galindo Patient Instructions Patient Instructions face to face discussd today 35 total time Justicifation of Admission Dx: Justifications for Admission: Justification of Admission Dx: Yes TANIA MOSER MD Feb 25, 2022 14:24
[2022-02-26] MEDS ORDERED: METR-34 PO (07:59)
== END 2022-02-25 16:48 | disposition home or self-care (01) | DRG 371 ==
LOC: ER 15:15 → 6 SOUTH 20:41
PROVIDERS: ADMIT Student in an Organized Health Care Education/Training Program; ATTEND Student in an Organized Health Care Education/Training Program
PROC: 5A1D70Z Performance of Urinary Filtration, Intermittent, Less than 6 Hours Per Day (ICD-10-PCS; principal; 2022-02-24)
DX: A04.72 Enterocolitis due to Clostridium difficile, not specified as recurrent (principal); N18.6 End stage renal disease; I12.0 Hypertensive chronic kidney disease with stage 5 chronic kidney disease or end stage renal disease; E10.43 Type 1 diabetes mellitus with diabetic autonomic (poly)neuropathy; E10.22 Type 1 diabetes mellitus with diabetic chronic kidney disease; K31.84 Gastroparesis; E87.6 Hypokalemia; F12.90 Cannabis use, unspecified, uncomplicated; D50.9 Iron deficiency anemia, unspecified; D63.8 Anemia in other chronic diseases classified elsewhere; Z99.2 Dependence on renal dialysis; Z79.4 Long term (current) use of insulin; Z88.8 Allergy status to other drugs, medicaments and biological substances
CPT/HCPCS: 36415; 74018; 80053; 82962; 83036; 83540; 83550; 83690; 83735; 84100; 85025; 87340; 87493; 87505; 93005; 96374; 96375; C9113; J0360; J1630; J1815; J2405; J2765; 99285-25; G0378